=== PATIENT | female | born 1945 | race Caucasian/White ===

== ENCOUNTER → 2016-04-07 | Day surgery (SDC) | payer OTHER ==
[~2016-04-07] MED LIST: AMLO10TA2 PO; ATOR10TA60 PO; ESOM40CA PO; FENTANYL PF 100 MCG/2 ML VIAL. IV PRN; HYDROMORPHONE 2 MG/ML VIAL. IV PRN; IV RINGERS,LACTATED 1000ML 1,000 ML IV SCH; LIDOCAINE 1% 1 ML SYRINGE. ID PRN; LIDOCAINE 2% PF Vial for OR 5 ML VIAL. ONE; LOSA1TAB17 PO; METO100T11 PO; MORPHINE SULFATE 2 MG/ML DISP.SYRIN. IV PRN; OMEP40CA5 PO; ONDANSETRON PF 4 MG/2 ML VIAL. IV PRN; PROCHLORPERAZINE 10 MG/2 ML VIAL. IV PRN; PROPOFOL 20 ML IV ONE; PROPOFOL 40 ML IV ONE; VIT1TABL32 PO
[2016-04-07 09:40] VITALS: BP 156/83
--- NOTE | 2016-04-08 13:15 | PATHOLOGY ---
PATHOLOGY REPORT * * * * * * * * FINAL DIAGNOSIS: Hepatic flexure polypectomy: - Tubular adenoma. COMMENT: There is no high grade dysplasia or evidence of malignancy. (JPM:all; d/t: 04/08/2016) REPORT ELECTRONICALLY SIGNED BY: Chuck Baltazar M.D. DATE/TIME: 04/08/2016 13:13 * * * * * * * * GROSS PATHOLOGY: Received in formalin labeled "Rashida Guzmán, hepatic flexure polypectomy," are two segments of begum soft tissue measuring 0.5 x 0.3 x 0.1 cm in aggregate dimensions and ranging from 0.2 to 0.3 cm in maximum dimension. The specimen is submitted entirely in cassette A1. (CAA; 04/07/2016) INITIAL CPT CODE(S): A; 26358 Professional services performed by [facility] [place] [address] Technical services performed by [facility] at [address] [place] [address], [facility] [address], [place] [address] Jimmie Heller fax: SPECIMEN(S) RECEIVED: A.Hepatic flexure polypectomy CLINICAL HISTORY: History of polyps, dysphagia PATIENT: RASHIDA GUZMÁN /AGE: 810/28/1945 (Age: 70) PATIENT #: [id number] ALT CASE #: SPECIMEN COLLECTION DATE: 04/07/2016 SPECIMEN RECEIVED DATE: 04/07/2016 [facility] - [address] [place] [address] - PHONE: [phone] * * * END OF REPORT * * *
== END ==
LOC: ENDOS 07:21
PROVIDERS: ATTEND Internal Medicine Gastroenterology
DX: K63.5 Polyp of colon (principal); K22.2 Esophageal obstruction; K64.8 Other hemorrhoids; K21.0 Gastro-esophageal reflux disease with esophagitis; K57.30 Diverticulosis of large intestine without perforation or abscess without bleeding; K29.50 Unspecified chronic gastritis without bleeding; K31.7 Polyp of stomach and duodenum; E78.00 Pure hypercholesterolemia, unspecified; I10 Essential (primary) hypertension; Z72.89 Other problems related to lifestyle; F17.210 Nicotine dependence, cigarettes, uncomplicated
CPT/HCPCS: 43235; 43450; 45385; 88305; J2704

== ENCOUNTER → 2018-04-14 | Outpatient (CLI) | payer OTHER ==
[2016-04-07 09:40] VITALS: BP 156/83
[~2018-04-14] MED LIST changes: -AMLO10TA2 PO; +AMLO10TA8 PO; +CONTRAST GIVEN. MC PRN; -FENTANYL PF 100 MCG/2 ML VIAL. IV PRN; -HYDROMORPHONE 2 MG/ML VIAL. IV PRN; +IOHEXOL 240 MG/ML 50ML VIAL. PO ONE; +IOHEXOL 300 MG/ML 100ML VIAL. IV ONE; -IV RINGERS,LACTATED 1000ML 1,000 ML IV SCH; -LIDOCAINE 1% 1 ML SYRINGE. ID PRN; -LIDOCAINE 2% PF Vial for OR 5 ML VIAL. ONE; -LOSA1TAB17 PO; +LOSA1TAB22 PO; +METO-247 PO; -METO100T11 PO; -MORPHINE SULFATE 2 MG/ML DISP.SYRIN. IV PRN; -ONDANSETRON PF 4 MG/2 ML VIAL. IV PRN; -PROCHLORPERAZINE 10 MG/2 ML VIAL. IV PRN; -PROPOFOL 20 ML IV ONE; -PROPOFOL 40 ML IV ONE
--- NOTE | 2018-04-14 13:07 | KCIC ---
Examination: CT ABD PELV W/ORAL IV CONTRAST History: Right lower quadrant pain which has been intermittent since July 2017 Comparison/Correlation: 09/27/2011 CT abdomen and pelvis without and with contrast Findings: Axial images of the abdomen and pelvis were obtained following IV contrast and oral. Sagittal and coronal reformatted images were provided. Visualized lung bases are clear. Liver is unremarkable. Low-attenuation lesions involving the spleen are present likely representing hemangiomas or other benign processes and these have remained stable in size. There is a new 2 small to characterize similar-appearing lesion however suggested that the inferior aspect of the spleen posteriorly but this has similar characteristics as the other lesions present. Pancreas and adrenal glands are normal. Bilateral renal cysts are present. Low-attenuation renal lesions which are too small to characterize are also present but probably represents cysts. Diverticulosis of the colon is present. No extraluminal gas. No inflammatory changes about the cecum. Urinary bladder is unremarkable. Uterus is grossly unremarkable. No ascites or pelvic free fluid. No enlarged abdominal or pelvic lymph nodes. Impression: Diverticulosis. No acute inflammatory process. Electronically signed by: Magdy Bryant MD (04/14/2018 1:02 PM) [facility]
== END | disposition home or self-care (01) ==
LOC: KCIC CT 10:34
PROVIDERS: ATTEND Family Medicine
DX: K57.30 Diverticulosis of large intestine without perforation or abscess without bleeding (principal); I10 Essential (primary) hypertension; Z85.841 Personal history of malignant neoplasm of brain
CPT/HCPCS: 74177; 82565; Q9966; Q9967

== ENCOUNTER → 2021-01-21 | Outpatient (CLI) | payer MEDICARE ==
[2016-04-07 09:40] VITALS: BP 156/83
[~2021-01-21] MED LIST changes: +AMLO-187 PO; -AMLO10TA8 PO; -CONTRAST GIVEN. MC PRN; -IOHEXOL 240 MG/ML 50ML VIAL. PO ONE; -IOHEXOL 300 MG/ML 100ML VIAL. IV ONE; -OMEP40CA5 PO; +OMEP40CA7 PO
--- NOTE | 2021-01-21 15:24 | KCIC ---
EXAM: Chest CT without intravenous contrast. HISTORY: Solitary pulmonary nodule. TECHNIQUE: Computed tomographic images of the chest were obtained without contrast. Multiplanar refor matting was performed. *One or more of the following individualized dose reduction techniques were utilized for this examina tion: 1. Automated exposure control. 2. Adjustment of the mA and/or kV according to patient size. 3. Use of iterative reconstruction technique. COMPARISON: 04/14/2018. FINDINGS: The heart is normal in size. There is calcified atherosclerotic plaque involving the portillo ry arteries. There is slight calcification of the aortic valve. The aorta is normal in caliber. No pa thologically enlarged lymph node is seen. There is no pneumothorax or pleural effusion. There is pulmonary emphysema. There is bilateral posterior dependent and basilar atelectasis. There i s a 1.2 cm groundglass opacity within the posterior right lower lobe which is also likely due to atel ectasis. There are nodular opacities within the lateral right middle lobe measuring up to 6 mm, the a ppearance of which favors focal pleural parenchymal scarring. This may be postinfectious or postinfla mmatory in etiology. There is no acute finding involving the upper abdomen. There is an ill-defined hypodense lesion withi n the spleen measuring 2.6 cm, partially included on the [id number]. There are multiple benign oss eous hemangiomas. There are degenerative changes throughout the spine. There is no acute or suspiciou s osseous finding. IMPRESSION: 1. Small nodular opacities within the lateral right middle lobe measuring up to 6 mm, the appearance of which favors postinfectious or postinflammatory scarring. There is also a 1.2 cm groundglass opaci ty within the posterior right lower lobe which is likely associated with adjacent atelectasis. Follow -up can be performed in one year. 2. Emphysema. 3. Hypodense lesion within the spleen. There are additional smaller hypodense lesions within the sple en which is better characterized on the prior CT dated 04/14/2018. The stability of the dominant lesion favors a benign etiology such as hemangiomas. Electronically signed by: Lainey Corral MD (01/21/2021 3:22 PM) [id number]
== END ==
LOC: KCIC CT 13:45
PROVIDERS: ATTEND Family Medicine
DX: R91.1 Solitary pulmonary nodule (principal); J43.9 Emphysema, unspecified; J98.11 Atelectasis; I25.10 Atherosclerotic heart disease of native coronary artery without angina pectoris; I35.8 Other nonrheumatic aortic valve disorders; D18.09 Hemangioma of other sites; D73.89 Other diseases of spleen
CPT/HCPCS: 71250

== ENCOUNTER → 2021-05-06 | Day surgery (SDC) | payer MEDICARE ==
[~2021-05-06] VITALS: Ht 162.6 cm; Wt 104.0 kg
[~2021-05-06] MED LIST changes: +DEXAMETHASONE SOD PHOS 4 MG/ML VIAL IVP ONE; +IV RINGERS,LACTATED 1000ML 1,000 ML IV SCH; +PROCHLORPERAZINE 10 MG/2 ML VIAL. IVP PRN; +PROPOFOL 10 MG/ML (20ML) VIAL. IV ONE
[2021-05-06 07:48] VITALS: BP 181/90
[2021-05-06 09:10] VITALS: BP 120/60
--- NOTE | 2021-05-07 15:08 | PATHOLOGY ---
[facility] Accession Number: [id number] . 01 Material submitted: . rectum - RECTAL POLYP BIOPSY . 01 Clinical history: . GERD, DYSPHAGIA, HX COLON POLYPS EGD/COLONOSCOPY . 02 Diagnosis: Colorectal biopsy, rectal polyp: - Hyperplastic polyp. . ([facility]:mm; 05/07/2021) [facility] 05/07/2021 1205 Local . 02 Comment: There are no adenomatous changes or evidence of malignancy. . ([facility]:mml; 05/07/2021) . 02 Electronically signed: . Chuck Baltazar MD, Pathologist NPI- [id number] . 01 Gross description: . The specimen is received in formalin, labeled "Shomin, Aparna, rectal polyp". Received is a single segment of pale begum tissue measuring 0.3 cm in maximum dimension. The specimen is entirely submitted in cassette A1. ([facility]; 05/06/2021) NRI/NRI 05/06/2021 1744 Local . 02 Pathologist provided ICD-10: K62.1 . 02 CPT . 044876 Specimen Comment: A courtesy copy of this report has been sent to [phone], [phone]- Specimen Comment: [id number] Specimen Comment: Report sent to / DR DUNLAP Specimen Comment: A duplicate report has been generated due to demographic updates. Performed at: 01 [facility] [address] [facility] [address], [place] [id number] MD Daryl Mendoza MD Phone: [phone] Performed at: 02 [facility] [address] [place], [place] [id number] MD Chuck Baltazar MD Phone: [phone]
== END | disposition home or self-care (01) ==
LOC: ENDOS 07:25
PROVIDERS: ATTEND Internal Medicine Gastroenterology
DX: Z12.11 Encounter for screening for malignant neoplasm of colon (principal); K64.0 First degree hemorrhoids; K57.30 Diverticulosis of large intestine without perforation or abscess without bleeding; K62.1 Rectal polyp; R13.10 Dysphagia, unspecified; K21.9 Gastro-esophageal reflux disease without esophagitis; K63.89 Other specified diseases of intestine; K31.89 Other diseases of stomach and duodenum; I10 Essential (primary) hypertension; E78.00 Pure hypercholesterolemia, unspecified; E66.9 Obesity, unspecified; M19.90 Unspecified osteoarthritis, unspecified site; Z79.899 Other long term (current) drug therapy; Z98.890 Other specified postprocedural states; Z91.040 Latex allergy status; Z88.8 Allergy status to other drugs, medicaments and biological substances; Z88.2 Allergy status to sulfonamides
CPT/HCPCS: 43235; 43450; 45380; 88305; J1100; J2704